=== PATIENT | male | born 1980 | race Caucasian/White ===

== ENCOUNTER 2018-12-03 04:22 | Observation (INO) | payer BC ==
[2018-12-03] MEDS ORDERED: NA CHLORIDE 0.9% 1,000 ML ONE (05:04)
[2018-12-03] MEDS ORDERED: LABETALOL 20 MG/4ML SYRINGE IV ONE (05:04)
[2018-12-03 05:06] LABS: Absolute Monocytes 0.7 K/uL (0.1-1.3); Absolute Neutrophil 5.8 K/uL (1.8-8.0); Basophils % 0.5 % (0-1.3); Eosinophils % 5.1 % (0-4.4); Hematocrit 44.7 % (39.6-49.0); Lymphocytes % 22.3 % (15.3-44.8); MPV 7.9 fL (7.6-11.3); Monocytes % 7.3 % (3.3-12.3); RBC Red Blood Cell Count 4.75 M/uL (4.33-5.43)
[2018-12-03 05:19] LABS: Protime INR 1.08
[2018-12-03 05:22] LABS: ALT/SGPT 60 U/L (12-78); AST/SGOT 34 U/L (15-37); Alkaline Phosphatase 68 U/L (45-117); BUN Blood Urea Nitrogen 16 mg/dL (7-18); Bicarbonate 26 mmol/L (21-32); Bilirubin Direct 0.1 mg/dL (0-0.2); Bilirubin Total 0.4 mg/dL (0.2-1.0); Glucose Level 109 mg/dL (74-106); Magnesium 1.8 mg/dL (1.8-2.4); NT PRO-BNP 68 pg/mL (<125); Potassium 3.9 mmol/L (3.5-5.1); Protein, Total 7.7 g/dL (6.4-8.2); Sodium Level 141 mmol/L (136-145); Troponin (Emerg Dept Use Only) < 0.02 ng/mL (0.0-0.045)
[2018-12-03] MEDS ORDERED: ACETAMINOPHEN 500 MG TAB ONE (05:57)
--- NOTE | 2018-12-03 06:05 | EDPHYS ---
Physician Documentation [facility] Name: Fawad Mensah Age: 38 yrs Sex: Male : 1980 Arrival Date: 12/03/2018 Time: 04:25 Bed 14 Private MD: Stephanie Aguirre H ED Physician Donald Maravilla HPI: 12/03 04:44 This 38 yrs old Male presents to ER via Ambulatory with complaints of pkl Shortness Of Breath, High Blood Pressure. 04:44 The patient has shortness of breath at rest. Onset: The symptoms/episode began/occurred pkl just prior to arrival, 6 hour(s) ago. Historical: - Allergies: 04:36 No Known Allergies; jd3 - Home Meds: 04:36 atorvastatin oral oral [Active]; Lisinopril Oral [Active]; jd3 - PMHx: 04:36 Hypertension; High Cholesterol; jd3 - PSHx: 04:36 None; jd3 - Immunization history:: Adult Immunizations up to date, Flu vaccine is up to date. - Social history:: Smoking status: Patient uses tobacco products, denies chronic smoking, but will smoke occasionally. - Ebola Screening: : Patient negative for fever greater than or equal to 101.5 degrees Fahrenheit, and additional compatible Ebola Virus Disease symptoms. ROS: 04:44 Eyes: Negative for injury, pain, redness, and discharge, ENT: Negative for injury, pkl pain, and discharge, Neck: Negative for injury, pain, and swelling, Cardiovascular: Negative for chest pain, palpitations, and edema. 04:44 Respiratory: Positive for shortness of breath. 04:44 Abdomen/GI: Negative for abdominal pain, nausea, vomiting, and diarrhea. 04:44 Back: Negative for acute changes. 04:44 : Negative for urinary symptoms. 04:44 MS/extremity: Negative for acute changes. 04:44 Skin: Positive for diaphoresis. 04:44 Neuro: Negative for altered mental status. Exam: 04:44 Head/Face: Normocephalic, atraumatic. Eyes: Pupils equal round and reactive to light, pkl extra-ocular motions intact. Lids and lashes normal. Conjunctiva and sclera are non-icteric and not injected. Cornea within normal limits. Periorbital areas with no swelling, redness, or edema. ENT: Nares patent. No nasal discharge, no septal abnormalities noted. Tympanic membranes are normal and external auditory canals are clear. Oropharynx with no redness, swelling, or masses, exudates, or evidence of obstruction, uvula midline. Mucous membranes moist. Neck: Trachea midline, no thyromegaly or masses palpated, and no cervical lymphadenopathy. Supple, full range of motion without nuchal rigidity, or vertebral point tenderness. No Meningismus. Chest/axilla: Normal chest wall appearance and motion. Nontender with no deformity. No lesions are appreciated. Cardiovascular: Regular rate and rhythm with a normal S1 and S2. No gallops, murmurs, or rubs. Normal PMI, no JVD. No pulse deficits. Respiratory: Lungs have equal breath sounds bilaterally, clear to auscultation and percussion. No rales, rhonchi or wheezes noted. No increased work of breathing, no retractions or nasal flaring. Abdomen/GI: Soft, non-tender, with normal bowel sounds. No distension or tympany. No guarding or rebound. No evidence of tenderness throughout. Back: No spinal tenderness. No costovertebral tenderness. Full range of motion. Skin: Warm, dry with normal turgor. Normal color with no rashes, no lesions, and no evidence of cellulitis. MS/ Extremity: Pulses equal, no cyanosis. Neurovascular intact. Full, normal range of motion. Neuro: Awake and alert, GCS 15, oriented to person, place, time, and situation. Cranial nerves II-XII grossly intact. Motor strength 5/5 in all extremities. Sensory grossly intact. Cerebellar exam normal. Normal gait. Vital Signs: 04:36 BP 153 / 115; Pulse 77; Resp 19 S; Temp 98.4(O); Pulse Ox 98% on R/A; Weight 99.79 kg jd3 (R); Height 5 ft. 11 in. (180.34 cm) (R); Pain 5/10; 05:30 BP 143 / 108; Pulse 69; Resp 16; Pulse Ox 97% on R/A; jb4 06:30 BP 135 / 95; Pulse 67; Resp 17; Pulse Ox 97% on R/A; jb4 07:06 BP 131 / 88; Pulse 71; Resp 17; Pulse Ox 97% ; sv 04:36 Body Mass Index 30.68 (99.79 kg, 180.34 cm) jd3 MDM: 04:27 Patient medically screened. pkl 05:26 Data reviewed: vital signs, nurses notes, lab test result(s), EKG, radiologic studies, pkl plain films. 12/03 04:46 Order name: Basic Metabolic Panel; Complete Time: 05:25 pkl 12/03 04:46 Order name: CBC with Diff; Complete Time: 05:25 pkl 12/03 04:46 Order name: LFT's; Complete Time: 05:25 pkl 12/03 04:46 Order name: Magnesium; Complete Time: 05:25 pkl 12/03 04:46 Order name: NT PRO-BNP; Complete Time: 05:25 pkl 12/03 04:46 Order name: PT-INR; Complete Time: 05:25 pkl 12/03 04:46 Order name: Troponin (emerg Dept Use Only); Complete Time: 05:25 pkl 12/03 04:46 Order name: XRAY Chest (1 view) pkl 12/03 04:46 Order name: EKG; Complete Time: 04:47 pkl 12/03 04:46 Order name: D-Dimer; Complete Time: 05:25 pkl 12/03 04:48 Order name: ABG pkl 12/03 04:46 Order name: Cardiac monitoring; Complete Time: 05:15 pkl 12/03 04:46 Order name: EKG - Nurse/Tech; Complete Time: 05:15 pkl 12/03 04:46 Order name: IV Saline Lock; Complete Time: 05:15 pkl 12/03 04:46 Order name: Labs collected and sent; Complete Time: 05:16 pkl 12/03 04:46 Order name: O2 Per Protocol; Complete Time: 04:50 pkl 12/03 04:46 Order name: O2 Sat Monitoring; Complete Time: 04:50 pkl Administered Medications: 05:00 Drug: Trandate 20 mg Route: IVP; Site: left antecubital; jb4 05:49 Follow up: Response: No adverse reaction; Blood pressure is lowered jb4 05:02 Drug: NS 0.9% 1000 ml Route: IV; Rate: 100 ml/hr; Site: left antecubital; jb4 08:56 Follow up: Response: No adverse reaction; IV Status: Infusion continued upon admission sv 05:50 Drug: Tylenol 1000 mg Route: PO; jb4 Disposition: 12/03/18 06:05 Hospitalization ordered by Linda Castro for Observation. Preliminary diagnosis is Acute dyspnea. Uncontrolled hypertension. - Bed requested for Telemetry/MedSurg (observation). - Status is Observation. sv - Condition is Stable. - Problem is new. - Symptoms are unchanged. UTI on Admission? No Signatures: Dispatcher [employer] EDVivian Stephenson, RN RN sv Donald Maravilla MD MD pkl Gautam Prescott RN RN jb4 Crystal [employer] RN RN df Rashad Nielson RN RN jd3 Corrections: (The following items were deleted from the chart) 08:25 06:05 Hospitalization Ordered by Linda Castro MD for Observation. Preliminary df diagnosis is Acute dyspnea. Uncontrolled hypertension. Bed requested for Telemetry/MedSurg (observation). Status is Observation. Condition is Stable. Problem is new. Symptoms are unchanged. UTI on Admission? No. pkl 08:56 08:25 12/03/2018 06:05 Hospitalization Ordered by Linda Castro MD for Observation. sv Preliminary diagnosis is Acute dyspnea. Uncontrolled hypertension. Bed requested for Telemetry/MedSurg (observation). Status is Observation. Condition is Stable. Problem is new. Symptoms are unchanged. UTI on Admission? No. df
--- NOTE | 2018-12-03 06:05 | ER ---
Nurse's Notes [facility] Name: Fawad Mensah Age: 38 yrs Sex: Male : 1980 Arrival Date: 12/03/2018 Time: 04:25 Bed 14 Private MD: Stephanie Aguirre H Diagnosis: Acute dyspnea. Uncontrolled hypertension Presentation: 12/03 04:33 Presenting complaint: Patient states: "I am having shortness of breath and high blood jd3 pressure which is making my head hurt and my chest feel very tight.". Transition of care: patient was not received from another setting of care. Onset of symptoms was December 02, 2018. Risk Assessment: Do you want to hurt yourself or someone else? Patient reports no desire to harm self or others. Initial Sepsis Screen: Does the patient meet any 2 criteria? No. Patient's initial sepsis screen is negative. Does the patient have a suspected source of infection? No. Patient's initial sepsis screen is negative. Care prior to arrival: None. 04:33 Method Of Arrival: Ambulatory jd3 04:33 Acuity: JERAD 3 jd3 Triage Assessment: 04:38 Respiratory: Reports shortness of breath Onset: The symptoms/episode began/occurred jd3 yesterday, the patient has mild shortness of breath. Historical: - Allergies: 04:36 No Known Allergies; jd3 - Home Meds: 04:36 atorvastatin oral oral [Active]; Lisinopril Oral [Active]; jd3 - PMHx: 04:36 Hypertension; High Cholesterol; jd3 - PSHx: 04:36 None; jd3 - Immunization history:: Adult Immunizations up to date, Flu vaccine is up to date. - Social history:: Smoking status: Patient uses tobacco products, denies chronic smoking, but will smoke occasionally. - Ebola Screening: : Patient negative for fever greater than or equal to 101.5 degrees Fahrenheit, and additional compatible Ebola Virus Disease symptoms. Screenin:37 Abuse screen: Denies threats or abuse. Nutritional screening: No deficits noted. jd3 Tuberculosis screening: No symptoms or risk factors identified. Fall Risk Ambulatory Aid- None/Bed Rest/Nurse Assist (0 pts). Gait- Normal/Bed Rest/Wheelchair (0 pts) Mental Status- Oriented to own ability (0 pts). Total Evans Fall Scale indicates No Risk (0-24 pts). Assessment: 04:41 General: Appears in no apparent distress. uncomfortable, Behavior is calm, cooperative, jb4 appropriate for age. Pain: Complains of pain in headache Pain does not radiate. Pain currently is 5 out of 10 on a pain scale. Quality of pain is described as throbbing, Pain began 1 day ago. Neuro: Level of Consciousness is awake, alert, obeys commands, Oriented to person, place, time, situation. Cardiovascular: Reports shortness of breath, having a pressure feeling on his chest that does not radiate. Is present on exertion and at rest. Heart tones S1 S2 present Patient's skin is warm and dry. Rhythm is sinus rhythm. Respiratory: Reports shortness of breath at rest on exertion Airway is patent Respiratory effort is even, unlabored, Respiratory pattern is regular, symmetrical, Breath sounds are clear bilaterally. GI: No signs and/or symptoms were reported involving the gastrointestinal system. : No signs and/or symptoms were reported regarding the genitourinary system. EENT: No signs and/or symptoms were reported regarding the EENT system. Derm: Skin is intact, Skin is pink, warm \\T\\ dry. Musculoskeletal: Circulation, motion, and sensation intact. 05:30 Reassessment: Patient appears in no apparent distress at this time. Patient and/or jb4 family updated on plan of care and expected duration. Pain level reassessed. Patient is alert, oriented x 3, equal unlabored respirations, skin warm/dry/pink. 05:45 Reassessment: PT reports headache has not decrease with B/P being lowered. Provider jb4 notified see [facility] for orders. 06:14 Reassessment: Patient appears in no apparent distress at this time. Patient and/or jb4 family updated on plan of care and expected duration. Pain level reassessed. Patient is alert, oriented x 3, equal unlabored respirations, skin warm/dry/pink. Vital Signs: 04:36 BP 153 / 115; Pulse 77; Resp 19 S; Temp 98.4(O); Pulse Ox 98% on R/A; Weight 99.79 kg jd3 (R); Height 5 ft. 11 in. (180.34 cm) (R); Pain 5/10; 05:30 BP 143 / 108; Pulse 69; Resp 16; Pulse Ox 97% on R/A; jb4 06:30 BP 135 / 95; Pulse 67; Resp 17; Pulse Ox 97% on R/A; jb4 07:06 BP 131 / 88; Pulse 71; Resp 17; Pulse Ox 97% ; sv 04:36 Body Mass Index 30.68 (99.79 kg, 180.34 cm) jd3 ED Course: 04:25 Patient arrived in ED. es 04:27 Donald Maravilla MD is Attending Physician. pkl 04:28 Stephanie Aguirre DO is Private Physician. es 04:35 Triage completed. jd3 04:37 Arm band placed on. EKG completed in triage. Results shown to MD. jd3 04:38 Patient has correct armband on for positive identification. Placed in gown. Bed in low jd3 position. Call light in reach. Side rails up X 1. 04:41 Gautam Prescott, RN is Primary Nurse. jb4 04:41 air sampling and monitoring on. Pulse ox on. NIBP on. jb4 04:50 Initial lab(s) drawn, by ED staff, sent to lab. EKG done. Inserted saline lock: 20 jb4 gauge in left antecubital area, using aseptic technique. Blood collected. 04:58 XRAY Chest (1 view) In Process Unspecified. EDMS 06:04 Linda Castro MD is Hospitalizing Provider. pkl 07:05 Primary Nurse role handed off by Gautam Prescott, RN sv 07:05 Vivian Hooper, KAIN is Primary Nurse. sv 07:07 Report received from Gautam FINNEGAN. sv 07:37 Awaiting bed assignment. sv 08:41 No provider procedures requiring assistance completed. Patient admitted, IV remains in sv place. intact. Administered Medications: 05:00 Drug: Trandate 20 mg Route: IVP; Site: left antecubital; jb4 05:49 Follow up: Response: No adverse reaction; Blood pressure is lowered jb4 05:02 Drug: NS 0.9% 1000 ml Route: IV; Rate: 100 ml/hr; Site: left antecubital; jb4 08:56 Follow up: Response: No adverse reaction; IV Status: Infusion continued upon admission sv 05:50 Drug: Tylenol 1000 mg Route: PO; jb4 Outcome: 06:05 Decision to Hospitalize by Provider. pkl 08:39 Admitted to Tele accompanied by tech, via wheelchair, room 212, with chart, Report sv called to Mabel FINNEGAN 08:39 Condition: stable 08:39 Instructed on the need for admit. 08:56 Patient left the ED. sv Signatures: Dispatcher [employer] Vivian Guzmán, KAIN RN sv Donald Maravilla MD MD pkl Salyer, Edna es Bryson, James, RN RN jb4 Rashad Nielson RN RN jd3 Corrections: (The following items were deleted from the chart) 08:40 08:39 Instructed on sv sv
[2018-12-03] MEDS ORDERED: ASPIRIN 81 MG CHEWABLE TABLET PO ONE (06:07)
--- NOTE | 2018-12-03 06:08 | P.HP ---
Certification for Inpatient Patient admitted to: Observation With expected LOS: <2 Midnights Practitioner: I am a practitioner with admitting privileges, knowledge of patient current condition, hospital course, and medical plan of care. Services: Services provided to patient in accordance with Admission requirements found in Title 42 Section 412.3 of the Code of Federal Regulations Patient History Date of Service: 12/03/18 Reason for admission: chest pain History of Present Illness: Mr Mensah is a 38 years old male with history of HTN and dyslipidemia, who last night around 10:00 PM start having chest pain, pressure like 8/10 of intensity, no radiated, lasting for 6 hr, associated with SOB and diaphoresis. He also had headache and felt he was flashing. At my encounter the patient has no chest pain. His BP at arrival was elevated 153/115. He smokes some days, denied any ilegal drugs. Lab work remarkable for normal WBC count, initial troponin I negative, d-dimer negative, EKG shows sinus rhythm with tall P waves, normal potassium level. CXR shows no acute infiltrate, cardiac silhouette seems to be enlarged. Home medications list reviewed: Yes - Past Medical/Surgical History -: HTN -: dyslipidemia Past Surgical History: Reviewed- Non-Contributory - Family History Father -: Hypertension - Social History Smoking Status: Current some day smoker Counseled patient to stop smoking for: less than 10 minutes Alcohol use: Yes CD- Drugs: No Place of Residence: Home Review of Systems 10-point ROS is otherwise unremarkable Physical Examination - Physical Exam General: Alert, In no apparent distress HEENT: Atraumatic, PERRLA, Mucous membr. moist/pink, EOMI, Sclerae nonicteric Neck: Supple, 2+ carotid pulse no bruit, No LAD, Without JVD or thyroid abnormality Respiratory: Clear to auscultation bilaterally, Normal air movement Cardiovascular: Regular rate/rhythm, Normal S1 S2 Gastrointestinal: Normal bowel sounds, No tenderness Musculoskeletal: No tenderness Integumentary: No rashes Neurological: Normal gait, Normal speech, Normal strength at 5/5 x4 extr, Normal tone, Normal affect Lymphatics: No axilla or inguinal lymphadenopathy - Studies Laboratory Data (last 24 hrs) 12/03/18 04:54: PT 12.8 H, INR 1.08 12/03/18 04:54: WBC 9.0, Hgb 15.7, Hct 44.7, Plt Count 259 12/03/18 04:54: Sodium 141, Potassium 3.9, BUN 16, Creatinine 0.86, Glucose 109 H, Magnesium 1.8, Total Bilirubin 0.4, AST 34, ALT 60, Alkaline Phosphatase 68 Assessment and Plan - Problems (Diagnosis) (1) Chest pain Current Visit: Yes Status: Acute Qualifiers: Chest pain type: precordial pain Qualified Code(s): R07.2 - Precordial pain (2) HTN (hypertension) Current Visit: Yes Status: Acute Qualifiers: Hypertension type: essential hypertension Qualified Code(s): I10 - Essential (primary) hypertension (3) Dyslipidemia Current Visit: Yes Status: Acute - Plan The patient will be admitted under observation due to pressure like chest pain. Initial troponin I is negative, EKG shows no ST abnormalitis, he has tall P waves, will order ECHO to R/O hypertrophy and evaluated cardiac function. Order serial cardiac enzymes and cardiology consult for evaluation and recommendations. Will follow chest pain protocol orders. - Advance Directives Does patient have a Living Will: No Does patient have a Durable POA for Healthcare: No - Code Status/Comfort Care Code Status Assessed: Yes Code Status: Full Code
--- NOTE | 2018-12-03 07:56 | EKG ---
Test Date: 2018-12-03 Test Time: 04:33:59 Store Lead: HUAN MEASUREMENT RESULTS: Intervals: Rate: 65 LA: 140 QRSD: 94 QT: 366 QTc: 380 [place]: P: 46 LA: 140 QRS: 54 T: 22 INTERPRETIVE STATEMENTS: Normal sinus rhythm Normal ECG No previous ECG available for comparison Electronically Signed On 12-03-18 07:55:28 [employer] DISTRIBUTOR OPERATOR by Harrison Higginbotham
--- NOTE | 2018-12-03 08:44 | RAD REPORT ---
EXAM DESCRIPTION: RAD - Chest Single View - 12/03/2018 4:58 am CLINICAL HISTORY: Shortness of breath, hypertension COMPARISON: None. TECHNIQUE: AP portable chest image was obtained 0453 hours . FINDINGS: Lungs are clear. Cardiomegaly is present from chamber enlargement or pericardial effusion. No vascular engorgement. No measurable pleural effusion and no pneumothorax. No acute bony abnormali ty seen. No acute aortic findings suspected. IMPRESSION: Cardiomegaly without failure or volume overload findings.
[2018-12-03] MEDS: ENOXAPARIN 40 MG/0.4 ML SQ SCH ×2 (09:20→10:01)
[2018-12-03] MEDS ORDERED: ACETAMINOPHEN 500 MG TAB PO PRN (09:20)
[2018-12-03 09:59] LABS: HDL Cholesterol 63 mg/dL (40-60); LDL Cholesterol, Calculated 75 (<130); Troponin I < 0.02 ng/mL (0.0-0.045)
--- NOTE | 2018-12-03 11:20 | EKG ---
Test Date: 2018-12-03 Test Time: 09:33:19 Financial Developer: KIRSTY MEASUREMENT RESULTS: Intervals: Rate: 52 AR: 146 QRSD: 104 QT: 404 QTc: 375 [place]: P: 53 AR: 146 QRS: 59 T: 26 INTERPRETIVE STATEMENTS: Sinus bradycardia Otherwise normal ECG Compared to ECG 12/03/2018 04:33:59 Sinus rhythm no longer present Electronically Signed On 12-03-18 11:19:43 SITE SPECIALIST by Harrison Higginbotham
--- NOTE | 2018-12-03 15:34 | ECHO ---
HEIGHT: 5 ft 11 in WEIGHT: 226 lb 0 oz DATE OF STUDY: 12/03/[address]: Linda Houser MD 2-DIMENSIONAL: YES M.MODE: YES DOPPLER: YES COLOR FLOW: YES TDS: PORTABLE: DEFINITY: BUBBLE STUDY: DIAGNOSIS: CHEST PAIN CARDIAC HISTORY: CATHERIZATION: NO SURGERY: NO PROSTHETIC VALVE: NO PACEMAKER: NO MEASUREMENTS (cm) DIASTOLIC (NORMALS) SYSTOLIC (NORMALS) IVSd 1.3 (0.6-1.2) LA Diam 4.2 (1.9-4.0) LVEF 65% LVIDd 5.3 (3.5-5.7) LVIDs 3.4 (2.0-3.5) %FS 36% LVPWd 1.3 (0.6-1.2) Ao Diam 2.6 (2.0-3.7) 2 DIMENSIONAL ASSESSMENT: RIGHT ATRIUM: NORMAL LEFT ATRIUM: DILATED RIGHT VENTRICLE: NORMAL LEFT VENTRICLE: MILD LEFT VENTRICULAR HYPERTROPHY TRICUSPID VALVE: NORMAL MITRAL VALVE: NORMAL PULMONIC VALVE: NORMAL AORTIC VALVE: NORMAL PERICARDIAL EFFUSION: NONE AORTIC ROOT: NORMAL LEFT VENTRICULAR WALL MOTION: NORMAL DOPPLER/COLOR FLOW: NORMAL COMMENTS: NORMAL LEFT VENTRICULAR EJECTION FRACTION. LEFT VENTRICULAR HYPERTROPHY. DILATED LEFT ATRIUM. TECHNOLOGIST: VINEET MATTHEWS
--- NOTE | 2018-12-03 20:49 | CON ---
CARDIOLOGY CONSULT History Of Present Illness: Mr. Mensah is 38. He woke up this morning with pain. He actually woke up 10 p.m. yesterday, it continued until 4 this morning. Then it went away. By the time he came to the hospital, he was not having chest pain. He had it for about 6 hours straight. Since he has been here, all of his blood tests have looked good. EKGs have looked good. Total cholesterol is 158, LD L 75. He is treated as an outpatient for hypertension and dyslipidemia with lisinopril 10 and atorva statin 20. Allergies: HE HAS NO KNOWN ALLERGIES. Social History: He smokes cigarettes on the weekends. Physical Examination: General: He is alert, oriented, pleasant, not in distress. Lungs: Clear. Neck: Carotids, no bruit. Cardiac: Normal. Abdomen: Soft. Extremities: Normal. Distal pulses normal. Impression: Mr. Mensah is probably not having an acute coronary syndrome. He should have a nuclear stress test. He wants to go home. I think he has met all the criteria that he could be discharged t onight and we have arranged for him to do an outpatient stress test in my office 2 days from now. JOANNA Voice ID: [id number] Report ID: [id number]
[2018-12-04] MEDS ORDERED: ASPIRIN EC 81 MG TAB PO SCH (09:00)
== END 2018-12-03 18:24 | disposition home or self-care (01) ==
LOC: ER 04:22 → ERHOLD 06:03 → 2ND 08:46
PROVIDERS: ADMIT Internal Medicine; ATTEND Internal Medicine
DX: R07.9 Chest pain, unspecified (principal); I10 Essential (primary) hypertension; E78.5 Hyperlipidemia, unspecified; F17.210 Nicotine dependence, cigarettes, uncomplicated
CPT/HCPCS: 36415; 71045; 80048; 80061; 80076; 83735; 83880; 84484; 85025; 85379; 85610; 93005; 93306; 96361; 96374; 99285; G0378; J1650; J7030